=== PATIENT | female | born 1990 | race American Indian/Alaskan Native ===

== ENCOUNTER 2020-12-10 11:50 | Emergency (ER) | payer BC ==
[2020-12-10 12:44] VITALS: BP 126/87
--- NOTE | 2020-12-10 14:04 | Emergency Department Report ---
Upper Extremity - HPI Chief Complaint: Extremity Injury, Upper Stated Complaint: RT SHOULDER PAIN Time Seen by Provider: 12/10/20 13:58 Upper Extremity: Right Shoulder Occurred When: >5 Days (Chronic) Severity: moderate, severe Symptoms: Yes Pain with Movement, Yes Limited Range of Movement, No Deformity, No Numbness, No Weakness, No Swelling, No Bruising/Ecchymosis, No Laceration or Abrasion Other History: 30-year-old female presents to the ER today with complaints of right shoulder pain. She states that the pain radiates down to her wrist. Is worse with movement. Patient reports a history of chronic same right shoulder pain but she states that in the past couple days has been getting worse. She denies any recent injury or strenuous activity. She states that she sees an franchise specialist at [facility] for her shoulder. She states that she was told that she has some ligament injury in that right shoulder secondary to history of seizures and she states that she is scheduled for surgery at the end of the month. She states that she is typically prescribed Tramadol for her pain but she ran out yesterday. She states that she try to call franchise specialist but could not get a hold of the office. She reports prior rotator cuff surgery that same right shoulder about 5 to 6 years ago. ED Review of Systems ROS: Stated complaint: RT SHOULDER PAIN Other details as noted in HPI Comment: All other systems reviewed and negative Constitutional: denies: chills, diaphoresis, fever, malaise, weakness Eyes: denies: eye pain, eye discharge, vision change ENT: denies: ear pain, throat pain Respiratory: denies: cough, shortness of breath, wheezing Cardiovascular: denies: chest pain, palpitations, dyspnea on exertion, syncope, paroxysmal nocturnal dyspnea Gastrointestinal: denies: abdominal pain, nausea, diarrhea, constipation, hematemesis, hematochezia Genitourinary: denies: urgency, dysuria, frequency, hematuria, discharge, abnormal menses, dyspareunia Musculoskeletal: arthralgia. denies: myalgia, other Skin: denies: rash, lesions, change in color, change in hair/nails, pruritus Neurological: denies: headache, weakness, numbness, paresthesias, confusion, abnormal gait, vertigo Psychiatric: denies: anxiety, depression, auditory hallucinations, visual hallucinations, homicidal thoughts, suicidal thoughts Hematological/Lymphatic: denies: easy bleeding, easy bruising ED Past Medical Hx - Past Medical History Hx Hypertension: No Hx Diabetes: No Hx Deep Vein Thrombosis: No Hx Renal Disease: No Hx Sickle Cell Disease: No Hx Seizures: Yes Hx Asthma: No Hx HIV: No Additional medical history: chronic right shoulder pain - Surgical History Additional Surgical History: R rotater cuff - Social History Smoking Status: Never Smoker - Medications Home Medications: Home Medications Medication Instructions Recorded Confirmed Last Taken Type levETIRAcetam [Keppra TAB] 500 mg PO BID #60 tablet 06/28/18 Unknown Rx methOCARBAMOL [Robaxin TAB] 500 mg PO Q8H PRN #20 tablet 12/10/20 Unknown Rx traMADoL [Ultram 50 MG tab] 50 mg PO Q4HR PRN #15 tablet 12/10/20 Unknown Rx Upper Extremity Exam - Exam General: Vital signs noted. No distress. Alert and acting appropriately. Head and Torso: No HEENT Abnormality, No Chest/Lungs Abnormality Shoulder Exam: Yes Shoulder Tenderness (TTP diffusely to right shoulder ), Yes AC Joint Tenderness (Right AC ttp ), No Normal Range of Motion in Shoulder (ROM of right shoulder reduced due to pain ), No Shoulder Deformity Arm Exam: Yes Arm/Humerus Tenderness (TTP proximal right humerus ), No Arm Deformity Elbow: Yes Normal Range of Motion in Elbow, No Elbow Tenderness, No Elbow Deformity Forearm: No Forearm Tenderness, No Forearm Deformity, No Pain with Pronation, No Pain with Supination Wrist: Yes Normal ROM in Wrist, No Wrist Tenderness, No Wrist Deformity, No Snuffbox Tenderness, No Pain with Axial Thumb Compression Hand: Yes Normal ROM in Digit(s), No Hand Tenderness, No Hand Deformity, No Digit Tenderness, No Digit(s) Deformity, No Tendon Dysfunction CMS Exam: Yes Normal Distal Pulses, Yes Normal Capillary Refill, Yes Normal D istal Sensation, No Broken Skin ED Course Vital Signs 12/10/20 12:38 Temperature 98.2 F Pulse Rate 90 Respiratory 18 Rate Blood Pressure 126/87 O2 Sat by Pulse 98 Oximetry ED Medical Decision Making - Medical Decision Making Patient presents to the ER with complaints of chronic right shoulder pain. She typically takes tramadol for pain but she ran out yesterday. She does have an franchise specialist and is scheduled to have surgery on the right shoulder at the end of the month. He states that she could not get a hold of her franchise specialist today. Patient reports a history of seizures, I did question patient about taking the tramadol and seizure disorder. She states that when she was prescribed tramadol by her franchise specialist she did talk to her neurologist about the tramadol and he told her it was okay to take. She states that she has not had a seizure in a long time. Overall patient is nontoxic, not ill- appearing, not in any significant pain distress. Vital signs are stable. Shoulder exam does not suggest septic joint, cellulitis, bony injury/dislocation or any other acute emergent conditions warranting imaging/testing at this time. Informed patient that we will give her a few days of the tramadol, continue taking ibuprofen from [id number] and take the muscle relaxer as prescribed. Patient expressed understanding of instructions and agree with plan. Patient stable at time of discharge. Critical care attestation.: If time is entered above; I have spent that time in minutes in the direct care of this critically ill patient, excluding procedure time. ED Disposition Clinical Impression: Chronic right shoulder pain Disposition: DC-01 TO HOME OR SELFCARE Is pt being admited?: No Does the pt Need Aspirin: No Condition: Stable Instructions: Shoulder Pain, [id number] Additional Instructions: Continue taking ibuprofen from [id number]. Take the muscle relaxer as prescribed. Take the tramadol as prescribed. Keep your appointment with the franchise specialist. Return to the ER if your symptoms changes or worsens in any way. Prescriptions: methOCARBAMOL [Robaxin TAB] 500 mg PO Q8H PRN #20 tablet PRN Reason: Spasms traMADoL [Ultram 50 MG tab] 50 mg PO Q4HR PRN #15 tablet PRN Reason: Pain Referrals: PRIMARY CARE, [Primary Care Provider] - 3-5 Days
== END 2020-12-10 14:00 | disposition home or self-care (01) ==
LOC: ED 11:50
DX: M25.511 Pain in right shoulder (principal); G89.29 Other chronic pain; Z98.890 Other specified postprocedural states; Z79.899 Other long term (current) drug therapy
CPT/HCPCS: 99282

== ENCOUNTER 2021-09-01 13:29 | Emergency (ER) | payer BC ==
[2021-09-01] MEDS ORDERED: traMADol 50 MG TAB PO ONE (14:06)
[2021-09-01] MEDS ORDERED: AMOXICILLIN 500 MG CAP PO ONE (14:06)
--- NOTE | 2021-09-01 14:06 | Emergency Department Report ---
ED ENT HPI - General Chief complaint: Dental/Oral Stated complaint: TOOTHACHE Time Seen by Provider: 09/01/21 14:00 Source: patient Mode of arrival: Ambulatory Limitations: No Limitations - History of Present Illness Initial comments: 30 yo comes to ER with left lower dental pain. Can not get to DMD until end september MD complaint: tooth pain -: Gradual, week(s) Quality: aching Consistency: constant Improves with: none Worsens with: none Context- Dental: history of dental caries Associated Symptoms: toothache. denies: fever, cough, gum swelling, pain with swallowing, sore throat, tinnitus, hearing loss, discharge from ear, rhinorrhea - Related Data Previous Rx's Medication Instructions Recorded Last Taken Type levETIRAcetam [Keppra TAB] 500 mg PO BID #60 tablet 06/28/18 Unknown Rx Amoxicillin [Trimox CAP] 500 mg PO BID #20 capsule 09/01/21 Unknown Rx Ibuprofen [Motrin] 800 mg PO Q8HR PRN #30 tablet 09/01/21 Unknown Rx Allergies Allergy/AdvReac Type Severity Reaction Status Date / Time No Known Allergies Allergy Unverified 11/14/14 21:28 ED Dental HPI - General Chief complaint: Dental/Oral Stated complaint: TOOTHACHE Time Seen by Provider: 09/01/21 14:00 Source: patient Mode of arrival: Ambulatory Limitations: No Limitations - Related Data Previous Rx's Medication Instructions Recorded Last Taken Type levETIRAcetam [Keppra TAB] 500 mg PO BID #60 tablet 06/28/18 Unknown Rx Amoxicillin [Trimox CAP] 500 mg PO BID #20 capsule 09/01/21 Unknown Rx Ibuprofen [Motrin] 800 mg PO Q8HR PRN #30 tablet 09/01/21 Unknown Rx Allergies Allergy/AdvReac Type Severity Reaction Status Date / Time No Known Allergies Allergy Unverified 11/14/14 21:28 ED Review of Systems ROS: Stated complaint: TOOTHACHE Other details as noted in HPI Comment: All other systems reviewed and negative ED Past Medical Hx - Past Medical History Previous Medical History?: Yes Hx Hypertension: No Hx Diabetes: No Hx Deep Vein Thrombosis: No Hx Renal Disease: No Hx Sickle Cell Disease: No Hx Seizures: Yes Hx Asthma: No Hx HIV: No Additional medical history: chronic right shoulder pain - Surgical History Past Surgical History?: Yes Additional Surgical History: R rotater cuff - Family History Family history: no significant - Social History Smoking Status: Never Smoker Substance Use Type: None - Medications Home Medications: Home Medications Medication Instructions Recorded Confirmed Last Taken Type levETIRAcetam [Keppra TAB] 500 mg PO BID #60 tablet 06/28/18 Unknown Rx Amoxicillin [Trimox CAP] 500 mg PO BID #20 capsule 09/01/21 Unknown Rx Ibuprofen [Motrin] 800 mg PO Q8HR PRN #30 tablet 09/01/21 Unknown Rx ED Physical Exam - General Limitations: No Limitations General appearance: alert, in no apparent distress - Head Head exam: Present: atraumatic, normocephalic - Eye Eye exam: Present: normal appearance - ENT ENT exam: Present: mucous membranes moist - Expanded ENT Exam Expanded Teeth exam: Present: dental caries, other (excessive plaque) Throat exam: Positive: normal inspection - Neck Neck exam: Present: normal inspection - Respiratory Respiratory exam: Present: normal lung sounds bilaterally. Absent: respiratory distress - Cardiovascular Cardiovascular Exam: Present: regular rate, normal rhythm. Absent: systolic murmur, diastolic murmur, rubs, gallop - GI/Abdominal GI/Abdominal exam: Present: soft, normal bowel sounds - Extremities Exam Extremities exam: Present: normal inspection - Back Exam Back exam: Present: normal inspection - Neurological Exam Neurological exam: Present: alert, oriented X3 - Psychiatric Psychiatric exam: Present: normal affect, normal mood - Skin Skin exam: Present: warm, dry, intact, normal color. Absent: rash ED Course Vital Signs 09/01/21 13:57 Temperature 98.7 F Pulse Rate 108 H Respiratory 16 Rate Blood Pressure 133/81 O2 Sat by Pulse 100 Oximetry ED Medical Decision Making - Medical Decision Making Vital Signs 09/01/21 13:57 Temperature 98.7 F Pulse Rate 108 H Respiratory 16 Rate Blood Pressure 133/81 O2 Sat by Pulse 100 Oximetry HR on provider exam 90 asking for ultram for pain educated pt on dental care and the fact that what we do will only temporarily help- she will need to see dmd. She verbalizes understanding. No abscess. no ludwigs. abc intact. no trismus. D/c home with amox and dmd referrals. - Differential Diagnosis dental pain Critical care attestation.: If time is entered above; I have spent that time in minutes in the direct care of this critically ill patient, excluding procedure time. ED Disposition Clinical Impression: Pain, dental Disposition: HOME / SELF CARE / HOMELESS Is pt being admited?: No Does the pt Need Aspirin: No Condition: Stable Instructions: Acute Pain, Adult Additional Instructions: med as ordered today follow up with dentist referrals below Referrals: [facility] [Outside] - 3-5 Days [facility] [Outside] - 3-5 Days Time of Disposition: 14:07
[2021-09-01 14:43] VITALS: BP 126/82
== END 2021-09-01 14:44 | disposition home or self-care (01) ==
LOC: ED 13:29
DX: K08.89 Other specified disorders of teeth and supporting structures (principal); R56.9 Unspecified convulsions; Z98.890 Other specified postprocedural states
CPT/HCPCS: 99282

== ENCOUNTER 2021-11-10 12:50 | Emergency (ER) | payer BC ==
[2021-11-10 13:58] VITALS: BP 131/65
--- NOTE | 2021-11-10 15:58 | Emergency Department Report ---
ED ENT HPI - General Chief complaint: Dental/Oral Stated complaint: TOOTHACHE Source: patient Mode of arrival: Ambulatory Limitations: No Limitations - History of Present Illness Initial comments: 31-year-old female presents to the ED complaining of chronic dental pain x several weeks. Patient has multiple dental cavities noted to her teeth. Patient denies any headache earache or nausea. Patient denies any difficult swallowing. She is alert and oriented x3. Patient states that she has taken multiple Tylenol Aleve Motrin [id number] and requesting narcotics. Patie nt has no obvious edema noted. No acute distress noted.no ill appearance noted . MD complaint: tooth pain Onset/Timin -: week(s), year(s) Severity scale (0 -10): 8 Quality: aching Consistency: intermittent Improves with: none Worsens with: none - Related Data Previous Rx's Medication Instructions Recorded Last Taken Type levETIRAcetam [Keppra TAB] 500 mg PO BID #60 tablet 06/28/18 Unknown Rx Amoxicillin [Trimox CAP] 500 mg PO BID #20 capsule 09/01/21 Unknown Rx Ibuprofen [Motrin] 800 mg PO Q8HR PRN #30 tablet 09/01/21 Unknown Rx Clindamycin [Clindamycin CAP] 600 mg PO BID 10 Days #20 capsule 11/10/21 Unknown Rx Allergies Allergy/AdvReac Type Severity Reaction Status Date / Time No Known Allergies Allergy Unverified 11/14/14 21:28 ED Dental HPI - General Chief complaint: Dental/Oral Stated complaint: TOOTHACHE Source: patient Mode of arrival: Ambulatory Limitations: No Limitations - Related Data Previous Rx's Medication Instructions Recorded Last Taken Type levETIRAcetam [Keppra TAB] 500 mg PO BID #60 tablet 06/28/18 Unknown Rx Amoxicillin [Trimox CAP] 500 mg PO BID #20 capsule 09/01/21 Unknown Rx Ibuprofen [Motrin] 800 mg PO Q8HR PRN #30 tablet 09/01/21 Unknown Rx Clindamycin [Clindamycin CAP] 600 mg PO BID 10 Days #20 capsule 11/10/21 Unknown Rx Allergies Allergy/AdvReac Type Severity Reaction Status Date / Time No Known Allergies Allergy Unverified 11/14/14 21:28 ED Review of Systems ROS: Stated complaint: TOOTHACHE Other details as noted in HPI Constitutional: denies: chills, fever Eyes: denies: eye pain, eye discharge, vision change ENT: denies: ear pain, throat pain Respiratory: denies: cough, shortness of breath, wheezing Cardiovascular: denies: chest pain, palpitations Endocrine: no symptoms reported Gastrointestinal: denies: abdominal pain, nausea, diarrhea Genitourinary: denies: urgency, dysuria, discharge Musculoskeletal: denies: back pain, joint swelling, arthralgia Skin: denies: rash, lesions Neurological: denies: headache, weakness, paresthesias Psychiatric: denies: anxiety, depression Hematological/Lymphatic: denies: easy bleeding, easy bruising ED Past Medical Hx - Past Medical History Previous Medical History?: No Hx Hypertension: No Hx Diabetes: No Hx Deep Vein Thrombosis: No Hx Renal Disease: No Hx Sickle Cell Disease: No Hx Seizures: Yes Hx Asthma: No Hx HIV: No Additional medical history: chronic right shoulder pain - Surgical History Past Surgical History?: No Additional Surgical History: R rotater cuff - Social History Smoking Status: Never Smoker Substance Use Type: None - Medications Home Medications: Home Medications Medication Instructions Recorded Confirmed Last Taken Type levETIRAcetam [Keppra TAB] 500 mg PO BID #60 tablet 06/28/18 Unknown Rx Amoxicillin [Trimox CAP] 500 mg PO BID #20 capsule 09/01/21 Unknown Rx Ibuprofen [Motrin] 800 mg PO Q8HR PRN #30 tablet 09/01/21 Unknown Rx Clindamycin [Clindamycin CAP] 600 mg PO BID 10 Days #20 capsule 11/10/21 Unknown Rx ED Physical Exam - General Limitations: No Limitations General appearance: alert, in no apparent distress - Head Head exam: Present: atraumatic, normocephalic - Eye Eye exam: Present: normal appearance - ENT ENT exam: Present: mucous membranes moist - Expanded ENT Exam Expanded Teeth exam: Present: dental caries - Neck Neck exam: Present: normal inspection - Respiratory Respiratory exam: Present: normal lung sounds bilaterally. Absent: respiratory distress - Cardiovascular Cardiovascular Exam: Present: regular rate, normal rhythm. Absent: systolic murmur, diastolic murmur, rubs, gallop - GI/Abdominal GI/Abdominal exam: Present: soft, normal bowel sounds - Extremities Exam Extremities exam: Present: normal inspection - Back Exam Back exam: Present: normal inspection - Neurological Exam Neurological exam: Present: alert, oriented X3 - Psychiatric Psychiatric exam: Present: normal affect, normal mood - Skin Skin exam: Present: warm, dry, intact, normal color. Absent: rash ED Course Vital Signs 11/10/21 13:56 Temperature 98.4 F Pulse Rate 65 Respiratory 18 Rate Blood Pressure 131/65 [Left] O2 Sat by Pulse 99 Oximetry ED Medical Decision Making - Medical Decision Making 31-year-old female presents to the ED complaining of chronic dental pain x several weeks. Patient has multiple dental cavities noted to her teeth. Patient denies any headache earache or nausea. Patient denies any difficult swallowing. She is alert and oriented x3. Patient states that she has taken multiple Tylenol Aleve Motrin [id number] and requesting narcotics. Patient has no obvious edema noted. No acute distress noted.no ill appearance noted . Physical examination patient has multiple dental caries noted. Patient has multiple narcotic in the past year. Patient highly upset and left prior to getting discharge instruction. Rechecked the patient is resting quietly quietly and comfortable and feeling better. I discussed the results of diagnostic study, my clinical impression and the plan for further treatment with the patient. Patient agrees with plan and discharge at this present time. All question addressed. I have given the patient instruction regarding a diagnosis ,expectation ,follow- up and return precaution. I explained to the patient that emergent condition may arise and to return to the ED for new worsen and any new persisting condition. I have explained the importance of following up with the primary care physician or referral physician listed below has instructed. The patient verbalized understanding of discharge instruction. Critical care attestation.: If time is entered above; I have spent that time in minutes in the direct care of this critically ill patient, excluding procedure time. ED Disposition Clinical Impression: Dental cavities Disposition: HOME / SELF CARE / HOMELESS Is pt being admited?: No Does the pt Need Aspirin: No Condition: Stable Instructions: Preventive Dental Care, Adult Additional Instructions: Take medication as prescribed Prescriptions: Clindamycin [Clindamycin CAP] 600 mg PO BID 10 Days #20 capsule Referrals: JOSH MARTINEZ MD [Primary Care Provider] - 3-5 Days [facility] [Outside] - 3-5 Days Forms: Work/School Release Form(ED)
== END 2021-11-10 16:10 | disposition home or self-care (01) ==
LOC: ED 12:50
DX: K02.9 Dental caries, unspecified (principal)
CPT/HCPCS: 99282

== ENCOUNTER 2021-12-28 13:00 | Emergency (ER) | payer BC ==
[2021-12-28 13:18] VITALS: BP 128/68
== END 2021-12-29 01:50 | disposition left against medical advice (07) ==
LOC: ED 13:00
DX: M25.511 Pain in right shoulder (principal); Z53.21 Procedure and treatment not carried out due to patient leaving prior to being seen by health care provider